=== PATIENT | female | born 1960 | race African-American/Black ===

== ENCOUNTER 2017-01-19 08:00 | Day surgery (SDC) | payer BC ==
[~2017-01-19 08:00] MED LIST: BALANCED SALT IRRIG SOLN COMB1 500 ML, EPINEPHRINE-PF 1:1000 1 MG IO ONE; MITOMYCIN 5 MG, WATER FOR INJECTION,STERILE 10 ML XX ONE
[2017-01-19] MEDS ORDERED: FLURBIPROFEN 0.03% OPHT DROP 2.5 ML BOTTLE ONE (08:37)
[2017-01-19] MEDS ORDERED: TETRACAINE HCL 0.5% OPHT DROP 2 ML BOTTLE ONE ×2 (08:37→09:34)
[2017-01-19] MEDS ORDERED: CIPROFLOXACIN 0.3% OPHT DROP 2.5 ML BOTTLE ONE (08:38)
[2017-01-19] MEDS ORDERED: PHENYLEPHRINE 2.5% OPHT DROP 2 ML BOTTLE ONE (08:38)
[2017-01-19] MEDS ORDERED: CYCLOPENTOLATE 1% OPHT DROP 2 ML BOTTLE ONE (08:38)
[2017-01-19 09:02] LABS: BASOPHILS % (AUTO) 0.4 % (0.0-2.0); EOSINOPHILS # (AUTO) 0.2 K/uL (0.0-0.7); EOSINOPHILS % (AUTO) 2.8 % (0.0-7.0); HEMATOCRIT 37.6 % (31.2-41.9); HEMOGLOBIN 12.8 g/dL (10.9-14.3); LYMPHOCYTES # (AUTO) 1.6 K/uL (20.0-40.0); LYMPHOCYTES % (AUTO) 20.5 % (20.5-51.5); MEAN CORPUSCULAR HGB CONC 34 g/dL (32.3-35.6); MEAN CORPUSCULAR VOLUME 85.3 fL (75.5-95.3); MONOCYTES # (AUTO) 0.8 K/uL (2.0-10.0); MONOCYTES % (AUTO) 10.7 % (0.0-11.0); NEUTROPHILS # (AUTO) 5.2 K/uL (1.8-8.9); NEUTROPHILS % (AUTO) 65.6 % (38.5-71.5); PLATELET COUNT (AUTO) 279 K/uL (179-408); RED BLOOD CELL COUNT(AUTO) 4.41 MIL/uL (3.63-4.92); WHITE BLOOD COUNT (AUTO) 7.8 K/uL (3.8-11.8)
[2017-01-19 09:05] LABS: *BILIRUBIN,URIN NEGATIVE (NEGATIVE); *BLOOD, URINE Trace-intact (NEGATIVE); *CLARITY,URINE CLEAR (CLEAR); *COLOR,URINE YELLOW (YELLOW); *KETONES,URINE NEGATIVE (NEGATIVE); *PROTEIN,URINE NEGATIVE (NEGATIVE); *UROBILINOGEN,URINE 0.2 E.U./dl (NORMAL); LEUKOCYTE ESTERASE ,URINE NEGATIVE (NEGATIVE); NITRITE, URINE NEGATIVE (NEGATIVE); UGLUCOSE NEGATIVE (NEGATIVE)
[2017-01-19 09:06] LABS: CREATININE 0.6 mg/dL (0.6-1.3); POTASSIUM 3.6 mmol/L (3.5-5.1)
[2017-01-19 09:13] LABS: BACTERIA,URINE FEW /HPF (NONE SEEN); SQUAMOUS EPITHELIAL CELL,UR FEW /HPF (NONE SEEN); WBC,URINE 0-3 /HPF (0-3)
[2017-01-19] MEDS ORDERED: FENTANYL CITRATE 100 MCG/2 ML AMPUL ONE ×2 (09:27→11:28)
[2017-01-19] MEDS ORDERED: MIDAZOLAM HCL 2 MG/2 ML VIAL ONE (09:28)
[2017-01-19 09:30] LABS: *URINE HCG, QUAL NEGATIVE (NEGATIVE)
[2017-01-19] MEDS ORDERED: PILOCARPINE 1% OPHT DROP 15 ML BOTTLE ONE (09:34)
[2017-01-19] MEDS ORDERED: LIDOCAINE HCL-MPF 1% 5 ML VIAL ONE (09:34)
[2017-01-19] MEDS ORDERED: NEO/POLYMYX B/DEXAME OPHT OINT 3.5 GM TUBE ONE (09:34)
[2017-01-19] MEDS ORDERED: HYALURONATE SODIUM 8.5 MG/0.85 ML DISP.SYRIN ONE ×2 (09:35→10:01)
[2017-01-19] MEDS ORDERED: BALANCED SALT IRRIG SOLN COMB2 15 ML IRRIG.SOLN ONE (09:35)
[2017-01-19] MEDS ORDERED: BUPIVACAINE PF 0.5% 30 ML VIAL ONE (09:35)
[2017-01-19] MEDS ORDERED: EPINEPHRINE 1 MG/1 ML AMP ONE (09:35)
[2017-01-19] MEDS ORDERED: ACETYLCHOLINE CHLORIDE 1% OPHT 1 EA KIT ONE (09:57)
[2017-01-19] MEDS ORDERED: IV LACTATED RINGERS SOLUTION 1,000 ML BAG IV ONE (14:49)
[2017-01-19] MEDS ORDERED: PROPOFOL 200 MG/20 ML BOTTLE IV ONE (14:49)
== END 2017-01-19 12:45 | disposition home or self-care (01) ==
LOC: DS 08:00
PROVIDERS: ATTEND Dermatology MOHS-Micrographic Surgery
DX: H40.9 Unspecified glaucoma (principal); H25.9 Unspecified age-related cataract; I65.29 Occlusion and stenosis of unspecified carotid artery; I10 Essential (primary) hypertension; Z88.6 Allergy status to analgesic agent
CPT/HCPCS: 36415; 66170; 66984; 71010; 80048; 81001; 84703; 85025; 85730; A4663; J0171 ×2; J2250; J3010 ×2; J3490 ×3; J3590; J7120 ×2; J7321 ×2; J9280; V2632